=== PATIENT | female | born 1960 | race Caucasian/White ===

== ENCOUNTER 2024-11-23 07:00 | Outpatient (CLI) | payer OTHER, SELFPAY ==
--- NOTE | 2024-11-23 07:08 | XR_ITS ---
FINAL REPORT CLINICAL HISTORY: bilateral foot pain and swelling hx of torn tendon in the left COMPARISON: None FINDINGS: LEFT FOOT Three views demonstrate no acute fracture or dislocation. The joint spaces appear normal. No acute soft tissue abnormality is seen. IMPRESSION: No acute bony abnormality. Reviewed, Interpreted and Dictated by David Sanchez MD Transcribed by Susannah Melissa Authenticated and [facility]
--- NOTE | 2024-11-23 07:08 | XR_ITS ---
FINAL REPORT CLINICAL HISTORY: bilateral foot pain and swelling hx of torn tendon in the left COMPARISON: None FINDINGS: RIGHT FOOT Three views demonstrate no acute fracture or dislocation. The joint spaces appear normal. No acute soft tissue abnormality is seen. IMPRESSION: No acute bony abnormality. Reviewed, Interpreted and Dictated by David Sanchez MD Transcribed by Susannah Melissa Authenticated and [facility]
== END 2024-11-23 23:59 | disposition home or self-care (01) ==
PROVIDERS: PCP Family Medicine Geriatric Medicine; Visit Provider Podiatrist
DX: M79.671 Pain in right foot (principal); M79.672 Pain in left foot
CPT/HCPCS: 73630

== ENCOUNTER 2024-12-01 07:55 | Outpatient (CLI) | payer OTHER, SELFPAY ==
--- OUTSIDE RECORDS SUMMARY | 2017-06-22 02:53 | XMS_ITS | Continuity of Care Document ---
Author Organization [facility] Address [address] [place] [address] Phone Care Team Providers Care Pr Internship Name Role Phone Unavailable Unavailable Unavailable Allergies, Adverse Reactions, Alerts Substance Reaction Status Criticality No Known allergies Medications Medication Instructions Dosage Effective Dates (start - stop) Status Comments amoxicillin 875 mg-potassium clavulanate 125 mg tablet take 1 tablet by oral route every 12 hours 1.00 tablet - Active benzonatate 100 mg capsule take 1 capsule by oral route 3 times every day as needed for cough as needed for Chest Congestion And Cough 100 MG - Active codeine 10 mg-guaifenesin 100 mg/5 mL oral liquid take 5 milliliter by oral route every 4 hours as needed as needed for Chest Congestion And Cough 5 milliliter - Active DIOVAN (unknown strength) take 1 tablet by oral route 2 times every day Not Available - Active AMLODIPINE BESYLATE (unknown strength) take 1 tablet by oral route every day Not Available - Active Procedures Procedure Date Offic/outpt E&m [facility] 8 Service(s) provided in the office during regularly Services provided in an urgent care cent er Advance Directives Directive Yes / No Effective Date File Name No Information Encounters Encounter Description Practice Location Reason(s) For Visit Diagnoses Date Provider Providers Copied on Encounter [facility], [address], [place], [id number] , tel:[phone] [facility] No Information 8 No Information Offic/outpt E&m [facility], [address], [place], [id number] , tel: [phone] [facility] Blank sinus symptoms (chief complaint) Community acquired bacterial pneumoniaAcute non-recurrent pansinusitisAcute non-recurrent pansinusitis 6-201 8 No Information Family History Family Member Type Diagnosis Age At Onset Problem (finding) Family history of hyper tension Father Problem (finding) Family history of prost ate cancer Payers Payer name Insurance type Covered republican ID Authoriza tijob(s) Ales[facility] HMO PPO [place] [id number] Social History Type Description Quantity Date Captured Comments Sex Female Smoking Status No Information Chief Complaint And Reason For Visit No Information Reason For Referral Reason For Referral No Information History Of Present Illness Encounter Date Complaint History Of Prese nt Illness No Information Functional Status Date Functional Assessmen t No Information Instructions Date Instruction Additional Infor mation No Information Assessments Type Assessment Date No Information Patient Care Teams Name Effective Dates (start - stop) Status Members No Information
--- OUTSIDE RECORDS SUMMARY | 2024-11-07 11:10 | XMS_ITS | Encounter Summary ---
Author Organization [facility] ([place], [place], [place], [place]) Address [address] [place] [address] Care Team Providers Care Dance Historian Name Role Phone Eleonora Benson MD Primary Care Provider [phone] Reason for Referral * Mammography (Routine) - Closed Specialty Diagnoses / Procedures Referred By Burt elliott Referred To Contact Radiology Diagnoses Visit for screening mammogram Procedures MM digital mammo screen with jarad bilateral Gómez Kendall MD [address] [place], [place] [address] [address] Phone: tel: fax: [address] [address] Phone: tel: fax: Referral ID Status Reason Start Date Expiration Date Visits Re quested Visits Authorized [id number] Closed 10/31/2024 10/31/2025 1 1 Reason for Visit * Mammography (Routine) - Closed Specialty Diagnoses / Procedures Referred By Burt elliott Referred To Contact Radiology Diagnoses Visit for screening mammogram Procedures MM digital mammo screen with jarad bilateral Gómez Kendall MD [address] [place], [place] [address] [address] [place] [address] Phone: tel: fax: [address] [place] [address] Phone: tel: fax: Referral ID Status Reason Start Date Expiration Date Visits Re quested Visits Authorized [id number] Closed 10/31/2024 10/31/2025 1 1 Encounter Details Date Type Department Care Team (Latest Contact Info) Description 11/07/2024 11:10 AM EDT - 11/07/2024 11:59 PM EDT Hospital Encounter [facility] [address] [place] [address] Gómez Kendall MD [address] [facility] [address] [place] [address] Visit for screening mammogram Discharge Disposition: Home or Self Care Social History Tobacco Use Types Packs/Day Years Used Date Smoking Tobacco: Never Assessed Family and Community Support Answer Agustin e Recorded Help with Day to Day Activities Not on file 07/09/2023 Feeling Lonely or Isolated Not on file 07/08 Educational Attainment Answer Date Fabian rded Speak language other than Filipino at home Not on file 07/09/2023 Want help with school or training Not on file 07/09/2023 Substance Use Answer Date Recorded Used prescription meds for non-medical reasons N ot on file 07/09/2023 Used illegal drugs past 12 months Not on file 07/09/2023 Comments No Sex and Gender Information Value Date Recorded Sex Assigned at Not on file Legal Sex Female 4:38 PM CDT Gender Identity Not on file Sexual Orientation Not on file documented as of this encounter Last Filed Vital Signs Vital Sign Reading Time Taken Comments Blood Pressure - - Pulse - - Temperature - - Respiratory Rate - - Oxygen Saturation - - Inhaled Oxygen Concentration - - Weight 93.4 kg (206 lb) 11/07/2024 11:43 AM EDT Height 160 cm (5' 3 ) 11/07/2024 11:43 AM EDT Body Mass Index 36.49 11/07/2024 11:43 AM EDT documented in this encounter Plan of Treatment Upcoming Encounters Date Type Department Care Team (Late st Contact Info) Description 11/14/2025 7:30 AM EDT Appointment [address] [address] documented as of this encounter Procedures Procedure Name Priority Date/Time Associated Diagnosis Comments MM DIGITAL MAMMO SCREEN WITH JARAD BILATERAL Routine 11/07/2024 11:44 AM EDT Visit for screening mammogram documented in this encounter Results * MM digital mammo screen with jarad bilateral (11/07/2024 11:44 AM EDT) Anatomical Region Laterality Modality Breast Bilateral Mammography 11/07/2024 8:21 PM EDT Impressions 11/07/2024 8:24 PM EDT No mammographic evidence of malignancy. BI-RADS CATEGORY: 2 , BENIGN FINDING(S). RECOMMENDED FOLLOW-UP: Routine annual screening mammography. A letter including results and recommendations was sent to the patient. Density notification was provided as well. Patient information entered into a reminder system with a target due date for the next mammogram. At our facility, a quechan marker is positioned over a visible skin lesion and a linear marker is used to indicate a scar. A triangular marker is placed on a self reported palpable finding. Mammography does not detect approximately 10-15% of breast cancers. An annual clinical breast exam by the patient's breast care physician and regular monthly self breast exams by the patient are integral parts of breast cancer screening. A normal mammogram does not completely exclude the presence of breast cancer, especially if there is an abnormal finding on physical exam. When clinically indicated, a biopsy should not be deferred because of a normal mammogram report. : 1960 Images reviewed, interpreted, and dictated by Nay Adair MD Narrative 11/07/2024 8:24 PM EDT BILATERAL SCREENING DIGITAL MAMMOGRAPHY CLINICAL INDICATION: Routine screening FAMILY HISTORY: No family history. . TECHNIQUE: Bilateral CC and MLO views were obtained with 2-D and 3-D digital acquisitions. The study was read with the assistance of CAD. COMPARISON: Previous exams back to 2020. FINDINGS: No spiculated mass, calcifications or architectural distortion is seen. There are scattered areas of fibroglandular density. No suspicious change identified. Gómez Kendall MD IMG MAMMOGRAPHY ORDERABLES F inal Result documented in this encounter Visit Diagnoses Diagnosis Visit for screening mammogram documented in this encounter Care Teams Dance Historian Relationship Specialty Start Date End Date Eleonora Benson MD [address] [place] [address] [place] [address] PCP - General Family Medicine 11/07/24 documented as of this encounter
--- OUTSIDE RECORDS SUMMARY | 2024-12-01 07:58 | XMS_ITS | Encounter Summary ---
Author Organization Healthcare Address [address] [place] [address] Care Team Providers Care Supervisor Ornamental Ironworking Name Role Phone Micki Austin MD Primary Care Provider [phone] Encounter Details Date Type Department Care Team ([facility] st Contact Info) Description 09/06/2019 Orders Only External Location [address] [place] [address] Micki Austin MD [address] [place], [place] [id number] Social History Tobacco Use Types Packs/Day Years Used Date Smoking Tobacco: Never Assessed Comments Unknown Sex and Gender Information Value Date Recorded Sex Assigned at Not on file Legal Sex Female 7:54 PM EDT Gender Identity Not on file Sexual Orientation Not on file documented as of this encounter Plan of Treatment Not on file documented as of this encounter Procedures Procedure Name Priority Date/Time Associated Diagnosis Comments CT MSK OUTSIDE IMAGES 09/06/2019 11:29 AM EDT documented in this encounter Results * CT MSK OUTSIDE IMAGES (09/06/2019 11:29 AM EDT) Anatomical Region Laterality Modality Computed Tomogra phy 09/06/2019 11:2 9 AM EDT us Micki Austin MD IMG CT PROCEDURES Final Resul t documented in this encounter Visit Diagnoses Not on filedocumented in this encounter Care Teams Supervisor Ornamental Ironworking Relationship Specialty Start Date End Date Micki Austin MD [address] [place], [place] [address] PCP - General 06/28/20 documented as of this encounter
--- OUTSIDE RECORDS SUMMARY | 2024-12-01 07:58 | XMS_ITS | Clinical Summary ---
Author Organization [facility] ([place], [place], [place], [place]) Address [address] [place] [address] Care Team Providers Care Range Mounter Name Role Phone Eleonora Benson MD Primary Care Provider [phone] Encounters Date Type Department Care Team Description 11/07/2024 11:10 AM EDT - 11/07/2024 11:59 PM EDT Hospital Encounter [facility] [address] [facility] [address] [place] [address] Gómez Kendall MD Visit for screening mammogram Discharge Disposition: Home or Self Care 11/07/2024 Outside Orders [facility] [address] [facility] [address] [place] [address] Eleonora Benson MD Visit for screening mammogram (Primary Dx) 11/07/2024 Travel from Last 3 Months Family History Medical History Relation Name Comments Prostate cancer Father Breast cancer Neg Hx Ovarian cancer Neg Hx Relation Name Status Comments Father Social History Tobacco Use Types Packs/Day Years Used Date Smoking Tobacco: Never Assessed Family and Community Support Answer Agustin e Recorded Help with Day to Day Activities Not on file 07/09/2023 Feeling Lonely or Isolated Not on file 07/08 Educational Attainment Answer Date Fabian rded Speak language other than Citizen [place] at home Not on file 07/09/2023 Want [...] on file Sexual Orientation Not on file Last Filed Vital Signs Vital Sign Reading Time Taken Comments Blood Pressure - - Pulse - - Temperature - - Respiratory Rate - - Oxygen Saturation - - Inhaled Oxygen Concentration - - Weight 93.4 kg (206 lb) 11/07/2024 11:43 AM EDT Height 160 cm (5' 3 ) 11/07/2024 11:43 AM EDT Body Mass Index 36.49 11/07/2024 11:43 AM EDT Plan of Treatment Upcoming Encounters Date Type Department Care Team (Late st Contact Info) Description 11/14/2025 7:30 AM EDT Appointment [address] [address] Health Maintenance Due Date Last Done Comments CT Colonography 1960 Colonoscopy 1960 Colorectal Cancer Screening 1960 FOBT/FIT 1960 Fit-DNA (Cologuard) 1960 Sigmoidoscopy 1960 Depression Screening (12+) 1972 Tobacco Cessation Counseling and Screening (12+) 1972 HIV Screening 10/17/1975 Hepatitis C Screening 1978 DTAP/TDAP/TD VACCINES (1 - Tdap) 10/17/1979 Pap Smear 1981 Lipid Panel 2005 Pneumococcal 50+ years (2 of 2 - PCV) 12/22/201808/2017 Shingles Vaccine (Zoster) (2 of 2) 11/18/20222022 COVID-19 VACCINE (4 - season) 2024 01/02/2022, 12/05/2020, 04/26/2020 Influenza Vaccine (#1) 2024 Breast Cancer Screening 11/07/2026 11/07/2024, 10/28 Respiratory Syncytial Virus (RSV) Adult or (1 - 1-dose 75+ series) 10/17/2035 Procedures Procedure Name Priority Date/Time Associated Diagnosis Comments MM DIGITAL MAMMO SCREEN WITH JARAD BILATERAL Routine 11/07/2024 11:44 AM EDT Visit for screening mammogram from Last 3 Months Results * MM digital mammo screen with [...] the next mammogram. At our facility, a [place] marker is positioned over a visible skin [...] 1960 Images reviewed, interpreted, and dictated by MD Delma Cordero 11/07/2024 8:24 PM EDT BILATERAL SCREENING DIGITAL [...] of fibroglandular density. No suspicious change identified. us Gómez Kendall MD IMG MAMMOGRAPHY ORDERABLES F inal Result from Last 3 [place] [address] [facility] Care Teams Range Mounter Relationship Specialty Start Date End Date Eleonora Benson MD [address] [address] PCP - General Family Medicine 11/07/24
--- OUTSIDE RECORDS SUMMARY | 2024-12-01 07:58 | XMS_ITS | Encounter Summary ---
Author Organization [facility] ([place], [place], [place], [place]) Address [address] [place] [address] Care Team Providers Care Electrical Instrument Technician Name Role Phone Gómez Kendall MD Primary Care Provider [phone] Reason for Referral * Mammography (Routine) - Closed Specialty Diagnoses / Procedures Referred By Contac t Referred To Contact Radiology Diagnoses Visit for screening mammogram Procedures MM digital mammo screen with tan bilateral Gómez Kendall MD [address] [address] Phone: tel: fax: [address] [place] [address] Phone: tel: fax: Referral ID Status Reason Start Date Expiration Date Visits Re quested Visits Authorized [id number] Closed 10/31/2024 10/31/2025 1 1 Encounter Details Date Type Department Care Team (Late st Contact Info) Description 10/29/2023 Outside Orders [address] [place] [address] Gómez Kendall MD [address] [employer] [place] [address] Visit for screening mammogram (Primary Dx) Social History Tobacco Use Types Packs/Day Years Used Date Smoking Tobacco: Never Assessed Family and Community Support Answer Agustin e Recorded Help with Day to Day Activities Not on file 07/09/2023 Feeling Lonely or Isolated Not on file 07/08 Educational Attainment Answer Date Fabian rded Speak language other than Croatian at home Not on file 07/09/2023 Want help with school or training Not on file 07/09/2023 Substance Use Answer Date Recorded Used prescription meds for non-medical reasons N ot on file 07/09/2023 Used illegal drugs past 12 months Not on file 07/09/2023 Comments Unknown Sex and Gender Information Value Date Recorded Sex Assigned at Not on file Legal Sex Female 4:38 PM CDT Gender Identity Not on file Sexual Orientation Not on file documented as of this encounter Plan of Treatment Upcoming Encounters Date Type Department Care Team (Late st Contact Info) Description 11/14/2025 7:30 AM EDT Appointment [address] [address] documented as of this encounter Results * MM digital mammo screen with tan bilateral (11/07/2024 11:44 AM EDT) Anatomical Region [...] the next mammogram. At our facility, a [place] marker is positioned over a visible skin [...] interpreted, and dictated by Nay Adair MD [facility] 11/07/2024 8:24 PM EDT BILATERAL SCREENING DIGITAL [...] encounter Visit Diagnoses Diagnosis Visit for screening mammogram- Primary Visit for screening mammogram documented in this encounter Care Teams Electrical Instrument Technician Relationship Specialty Start Date End Date Gómez Kendall MD PCP - General Family Medicine 10/29/23 11/06/24 documented as of this encounter
--- OUTSIDE RECORDS SUMMARY | 2024-12-01 07:58 | XMS_ITS | Encounter Summary ---
Author Organization [facility] ([place], [place], [place], [place]) Address [address] [place] [address] Care Team Providers Care Human Relations Professor Name Role Phone Eleonora Benson MD Primary Care Provider [phone] Reason for Referral * Mammography (Routine) - Authorized Specialty Diagnoses / Procedures Referred By Contac t Referred To Contact Radiology Diagnoses Visit for screening mammogram Procedures MM digital mammo screen with tan bilateral Eleonora Benson MD [address] [place] [address] Phone: tel: fax: [address] [place] [phone] Phone: tel: fax: Referral ID Status Reason Start Date Expiration Date V isits Requested Visits Authorized [id number] Authorized 11/14/2025 11/14/2026 1 1 Encounter Details Date Type Department Care Team (Late st Contact Info) Description 11/07/2024 Outside Orders [facility] Breast [address] [place] [address] Eleonora Benson MD [address] [place] [address] Visit for screening mammogram (Primary Dx) Social History Tobacco Use Types Packs/Day Years Used Date Smoking Tobacco: Never Assessed Family and Community Support Answer Agustin e Recorded Help with Day to Day Activities Not on file 07/09/2023 Feeling Lonely or Isolated Not on file 07/08 Educational Attainment Answer Date Fabian rded Speak language other than Colombian at home Not on file 07/09/2023 Want [...] Info) Description 11/14/2025 7:30 AM EDT Appointment [address] [place] [address] Scheduled Orders Name Type Priority Associated Diagnoses Orde r Schedule MM digital mammo screen with tan bilateral Imaging Routine Visit for screening mammogram Expected: 11/14/2025, Expires: 11/14/2026 documented as of this encounter Visit Diagnoses Diagnosis Visit for screening mammogram- Primary documented in this encounter Care Teams Human Relations Professor Relationship Specialty Start Date End Date Eleonora Benson MD [address] [address] PCP - General Family Medicine 11/07/24 documented as of this encounter
--- OUTSIDE RECORDS SUMMARY | 2024-12-01 07:58 | XMS_ITS | Clinical Summary ---
Author Organization [facility] Address [address] [place] [address] Care Team Providers Care Mechanical Test Technician Name Role Phone Micki Austin MD Primary Care Provider [phone] Allergies No known active allergies Medications valsartan-hydroC HLOROthiazide (Diovan-HCT) 320-25 MG tablet Take 1 tablet by mouth 1 (one) time each day. 09/06/2020 Active amLODIPine (Norvasc) 5 MG tablet Take by mouth 1 (one) time each day. Active meloxicam (Mobic) 15 MG tablet Take 15 mg by mouth 1 (one) time each day. Active Active Problems No known active problems Family History Medical History Relation Name Comments Prostate cancer Father Diabetes Maternal Grandfather Diabetes Mother Relation Name Status Comments Father Maternal Grandfather Mother Social History Tobacco Use Types Packs/Day Years Used Date Smoking Tobacco: Never Smokeless Tobacco: Never Tobacco Cessation:Counseling Given: No Alcohol Use Standard Drinks/Week Comments Never 0 (1 standard drink = 0.6 oz pur e alcohol) PHQ-2 Answer Date Recorded Patient Health Questionnaire-2 Score 0 09/25/2020 Comments Unknown Sex and Gender Information Value Date Recorded Sex Assigned at Not on file Legal Sex Female 7:54 PM EDT Gender Identity Not on file Sexual Orientation Not on file Last Filed Vital Signs Vital Sign Reading Time Taken Comments Blood Pressure 152/79 09/25/2020 3:11 PM EDT Pulse 92 09/25/2020 3:11 PM EDT Temperature 36.1 C (96.9 F) 09/25/2020 3:11 PM EDT Respiratory Rate - - Oxygen Saturation - - Inhaled Oxygen Concentration - - Weight 112 kg (247 lb 5.7 oz) 09/25/2020 3:11 PM EDT Height 162.6 cm (5' 4 ) 09/25/2020 3:11 PM EDT Body Mass Index 42.46 09/25/2020 3:11 PM EDT Plan of Treatment Health Maintenance Due Date Last Done Comments [facility]-Depression Screening 1960 [facility]-Infant/Child/Adol SDOH Screenings 1960 [facility]- SDOH Screenings 1978 [facility]-Adult SDOH Screenings 1978 [facility]-DTaP,Tdap,and Td Vaccines (1 - Tdap) 10/17/1979 [facility]-Pap Smear 1981 [facility]-Cervical Cancer Screening 1990 [facility]-HPV/Cotest 1990 CT Colonography 2005 Colonoscopy 2005 FIT-DNA 2005 FIT 2005 FOBT 2005 Sigmoidoscopy 2005 [facility]-Colorectal Cancer Screening 2005 [facility]-Zoster Vaccines (1 of 2) 2010 [facility]-Pneumococcal Vaccine: 50+ Years (2 of 2 - PCV) 12/22/2018 12/22/2017 [id number] Vaccine (2 - 2024- season) 2024 04/26/2020 [facility]-Influenza Vaccine (#1) 10/16/202411/07, 11/29/2018, 12/22/2017, Additional history exists [facility]-RSV Vaccine: 60+ Years or (1 - 1-dose 75+ series) 10/17/2035 [facility]-Diabetes: Hemoglobin A1C Discontinued 09/25/2020 HPV Vaccines Aged Out No longer eligi ble based on patient's age to complete this topic [facility]-HIB Vaccines Aged Out No longer e ligible based on patient's age to complete this topic [facility]-Hepatitis A Vaccines Aged Out No longer eligible based on patient's age to complete this topic [facility]-IPV Vaccines Aged Out No longer e ligible based on patient's age to complete this topic [facility]-Rotavirus Vaccines Aged Out No lo nger eligible based on patient's age to complete this topic Procedures Procedure Name Priority Date/Time Associated Diagnosis Comments POCT GLYCOSYLATED HEMOGLOBIN (HGB A1C) Routine 09/25/2020 3:39 PM EDT H/O: nutritional disorder from Last 3 Months or Most Recently Relevant to Health Maintenance Results * POCT Glycosylated Hemoglobin (Hgb A1C) (09/25/2020 3:39 PM EDT) POCT Hemoglobin A1C 5.8 4.4 - 6.6 % [facility] Kit Lot Number [id number] [facility] Kit Expiration Date 06/2022 [facility] Blood Venous blood specimen / Unknown 09/25/2020 3:39 PM EDT Harish Ryan MD POINT OF CARE TEST ENTER/EDIT OR DERABLES Final Result [facility] [address] [place] [address] from Last 3 Months or Most Recently Relevant to Health Maintenance Insurance [employer] Care Teams Mechanical Test Technician Relationship Specialty Start Date End Date Micki Austin MD [address] [place] [address] PCP - General 06/28/20
--- OUTSIDE RECORDS SUMMARY | 2024-12-01 07:58 | XMS_ITS | Encounter Summary ---
Author Organization [employer] ([place], [place], [place], [place]) Address [address] [place] [address] Care Team Providers Care Teachers' Aide Name Role Phone Gómez Kendall MD Primary Care Provider Eleonora Benson MD Primary Care Provider Encounter Details Date Type Department Care Team (Late st Contact Info) Description 06/23/2022 Outside Orders [facility] Outpatient Physical Therapy [address] [facility] [address] [place] [address] Thony Lewis MD [address] [place] [address] Lymphedema (Primary Dx) Social History Tobacco Use Types [...] Info) Description 11/14/2025 7:30 AM EDT Appointment [facility] Breast Care [address] [facility] [address] [place] [address] documented as of this encounter Visit Diagnoses Diagnosis Lymphedema- Primary Other noninfectious lymphedema documented in this encounter Care Teams Teachers' Aide Relationship Specialty Start Date End Date Gómez Kendall MD PCP - General Family Medicine 10/29/23 11/06/24 Eleonora Benson MD [address] [place] [address] [place] [phone] PCP - General Family Medicine 11/07/24 documented as of this encounter
--- OUTSIDE RECORDS SUMMARY | 2024-12-01 07:58 | XMS_ITS | Referral Summary ---
Author Organization [employer] ([place], [place], [place], [place]) Address [address] [place] [address] Care Team Providers Care Event Specialist Name Role Phone Eleonora Benson MD Primary Care Provider [phone] Encounters Date Type Department Care Team Description 11/07/2024 Outside Orders [facility] Breast Care [address] [address] Eleonora Benson MD Visit for screening mammogram (Primary Dx) 11/07/2024 Travel 11/07/2024 11:10 AM EDT - 11/07/2024 11:59 PM EDT Hospital Encounter [facility] Breast [address] [address] Gómez Kendall MD Visit for screening mammogram Discharge Disposition: Home or Self Care from Last 3 Months Social History Tobacco Use Types Packs/Day Years Used Date Smoking Tobacco: Never Assessed Family and Community Support Answer Agustin e Recorded Help with Day to Day Activities Not on file 07/09/2023 Feeling Lonely or Isolated Not on file 07/08 Educational Attainment Answer Date Fabian rded Speak language other than Senegalese at home Not on file 07/09/2023 Want [...] Info) Description 11/14/2025 7:30 AM EDT Appointment [address] [phone] Procedures Procedure Name Priority Date/Time Associated Diagnosis [...] the next mammogram. At our facility, a [place] marker is positioned over a visible skin [...] inal Result from Last 3 Months Insurance [employer] Care Teams Event Specialist Relationship Specialty Start Date End Date Eleonora Benson MD [address] [place] [address] [place] [phone] PCP - General Family Medicine 11/07/24
--- OUTSIDE RECORDS SUMMARY | 2024-12-01 07:58 | XMS_ITS | Clinical Summary ---
Author Organization [facility] Address [address] [place] [address] Care Team Providers Care Coding Validator Name Role Phone Gómez Kendall MD Primary Care Provider [phone] Allergies No known active allergies Medications valsartan 80 MG tablet 320 mg, hydroCHLOROthiazide 25 MG tablet 25 mg Take 1 dose by mouth Daily. Active atorvastatin (LIPITOR) 40 MG tablet Take 1 tablet by mouth Daily. Active metFORMIN (GLUCOPHAGE) 500 MG tablet Take 1 tablet by mouth Daily With Dinner. Active potassium chloride (MICRO-K) 10 MEQ CR capsule Take 2 capsules by mouth Daily. 10 capsule 09/24/19 24 Active furosemide (LASIX) 40 MG tablet Take 0.5 tablets by mouth Daily. 15 tablet 09/24/19 24 Active Active Problems No known active problems Family History Medical History Relation Name Comments Breast cancer Neg Hx Ovarian cancer Neg Hx Social History Tobacco Use Types Packs/Day Years Used Date Smoking Tobacco: Former Cigarettes Q uit: 1989 Alcohol Use Standard Drinks/Week Comments Never 0 (1 standard drink = 0.6 oz pur e alcohol) AUDIT-C Answer Date Recorded Q1: How often do you have a drink containing alcohol? Never 09/24/2023 Q2: How many drinks containi ng alcohol do you have on a typical day when you are drinking? Patient does not drink Q3: How often do you have si x or more drinks on one occasion? Never 09/24/2023 Abuse Screen Answer Date Recorded Feels Unsafe at Home or Work/School no 09/23/2023 Feels Threatened by Someone no 080 09/2023 Does Anyone Try to Keep You From Having Contact with Others or Doing Things Outside Your Home? no 09/23/2023 Physical Signs of Abuse Present no 09/23/2023 Housing Stability Answer Date Recorded Current Living Arrangements home 10/2023 Potentially Unsafe Housing Conditions Not on zay e 09/24/2023 Family and Community Support Answer Agustin e Recorded Help with Day-to-Day Activities Not on file 11/23/2022 Lonely or Isolated Not on file 11/23/2022 Employment Answer Date Recorded Do you want help finding or keeping work or a jose ramon b? Not on file 11/23/2022 Disabilities Answer Date Recorded Difficulty Concentrating, Remembering or Making Decisions no 09/24/2023 Difficulty Managing Errands Independently yes 09/24/2023 Education Answer Date Recorded Help with school or training? Not on file Preferred Language Not on file 11/23/2022 Comments No Sex and Gender Information Value Date Recorded Sex Assigned at Not on file Legal Sex Female 1:30 PM EDT Gender Identity Not on file Sexual Orientation Not on file Last Filed Vital Signs Vital Sign Reading Time Taken Comments Blood Pressure 179/73 09/24/2023 12:48 PM EDT Pulse 100 09/24/2023 12:48 PM EDT Temperature 36.7 C (98.1 F) 09/24/2023 12:48 PM EDT Respiratory Rate 17 09/24/2023 12:48 PM EDT Oxygen Saturation 98% 09/24/2023 12:48 PM EDT Inhaled Oxygen Concentration - - Weight 129 kg (284 lb 6.3 oz) 09/24/2023 12:03 P M EDT Height 160 cm (5' 2.99 ) 09/24/2023 12:03 PM EDT Body Mass Index 50.39 09/24/2023 12:03 PM EDT Plan of Treatment Health Maintenance Due Date Last Done Comments Annual Gynecologic Pelvic an d Breast Exam 1960 COLOGUARD 2005 COLON CANCER SCREENING 5 YEA R SIGMOID[address]COPY 2005 [address] COLONOGRAPHY 2005 FECAL OCCULT BLOOD TEST 2005 FIT Testing (1 year) 2005 Pneumococcal Vaccine 50+ (2 of 2 - PCV) 12/22/2018 12/22/2017 ANNUAL PHYSICAL 05/25/2022 HEPATITIS C SCREENING 05/25/2022 ZOSTER VACCINE (2 of 2) 11/18/2022 09/23/2022 MAMMOGRAM 02/06/2024 02/05/2022, 05/0 07/2020, 08/09/2017, Additional history exists INFLUENZA VACCINE 09/15/2024 01/02/2022, , 01/02/2022, Additional history exists TDAP/TD VACCINES (2 - Td or Tdap) 12/04/2024 015 COLONOSCOPY 05/21/2025 05/22/2015, 04/19/2012 COLORECTAL CANCER SCREENING 05/21/2025 Procedures Procedure Name Priority Date/Time Associated Diagnosis Comments MAMMO SCREENING DIGITAL TOMOSYNTHESIS BILATERAL W CAD Routine 02/05/2022 9:01 AM EST Visit for screening mammogram from Last 3 Months or Most Recently Relevant to Health Maintenance Results * Mammo Screening Digital Tomosynthesis Bilateral With CAD (02/05/2022 9:01 AM EST) Anatomical Region Laterality Modality Breast N/A Mammography 02/12/2022 12:5 7 PM EST Impressions 02/12/2022 12:57 PM EST Negative bilateral mammogram. RECOMMENDATION: Continue annual screening mammography. BI-RADS CATEGORY 1, NEGATIVE. CAD was utilized. The standard false-negative rate of mammography is between 10% and 25%. Complex patterns or increased breast density will markedly elevate the false-negative rate of mammography. A letter, in lay terminology, with the results of this exam will be mailed to the patient. This report was finalized on 02/12/2022 12:[address] Tia Mcclelland MD. Narrative 02/12/2022 12:57 PM EST DIGITAL SCREENING MAMMOGRAM WITH TOMOSYNTHESIS HISTORY: Screening Mammography. Low dose full field digital breast tomosynthesis imaging was performed with 2D and 3D acquisitions consisting of bilateral CC and MLO views. Examination is compared to prior examination dating back to 06/04/2015. Examination is read in conjunction with computer aided detection. FINDINGS: There are scattered areas of fibroglandular density. No suspicious masses, microcalcifications or areas of architectural distortion are present. us Gómez Kendall MD IMG MAMMOGRAPHY ORDERABLES F inal Result from Last 3 Months or Most Recently Relevant to Health Maintenance Advance Directives * CPR (Attempt to Resuscitate) (Latest Code Status on File) Date Activated Date Inactivated Comments 09/24/2023 1:42 AM 09/24/2023 5:08 PM Question Answer Comments Code Status (Patient has no pulse and is not breathing): CPR (Attempt to Resuscitate) Medical Interventions (Patie nt has pulse or is breathing): Full Support Level Of Support Discussed With: Patient Care Teams Coding Validator Relationship Specialty Start Date End Date Gómez Kendall MD [address] [place] [address] PCP - General Instructional Technology Coach 10/06/23
--- OUTSIDE RECORDS SUMMARY | 2024-12-01 07:59 | XMS_ITS | Encounter Summary ---
Author Organization [employer] ([place], [place], [place], [place]) Address [address] [place] [address] Care Team Providers Care Accounts Payable Accountant Name Role Phone Eleonora Benson MD Primary Care Provider [phone] Encounter Details Date Type Department Care Team (Latest Contact Info) Description 11/07/2024 Travel Social History Tobacco Use Types Packs/Day Years Used Date Smoking Tobacco: Never Assessed Family and Community Support Answer Agustin e Recorded Help with Day to Day Activities Not on file 07/09/2023 Feeling Lonely or Isolated Not on file 07/08 Educational Attainment Answer Date Fabian rded Speak language other than [place] at home Not on file 07/09/2023 Want [...] Info) Description 11/14/2025 7:30 AM EDT Appointment [address] [phone] documented as of this encounter Visit Diagnoses Not on filedocumented in this encounter Care Teams Accounts Payable Accountant Relationship Specialty Start Date End Date Eleonora Benson MD [address] [place] [phone] PCP - General Family Medicine 11/07/24 documented as of this encounter
--- NOTE | 2024-12-01 08:00 | US_ITS ---
FINAL REPORT CLINICAL HISTORY: COLD EXTREMITIES,HTN,RT FOOT PAIN,EX SMOKER FINDINGS: ANKLE-BRACHIAL PRESSURE INDICES Pressure indices are as follows: RIGHT LOWER EXTREMITY: Ankle-brachial pressure index: 1.19 Comments: Normal LEFT LOWER EXTREMITY: Ankle-brachial pressure index: 1.31 Comments: Normal IMPRESSION: No evidence of significant obstructive peripheral vascular disease of the lower extremities Reviewed, Interpreted and Dictated by Seema Briones MD Transcribed by Kim Iverson Authenticated and [facility]
== END 2024-12-01 23:59 | disposition home or self-care (01) ==
LOC: RT 07:57
PROVIDERS: PCP Family Medicine Geriatric Medicine; Visit Provider Podiatrist
DX: R09.89 Other specified symptoms and signs involving the circulatory and respiratory systems (principal)
CPT/HCPCS: 93923

== ENCOUNTER 2024-12-21 13:58 | Outpatient (RCR) | payer OTHER, SELFPAY ==
--- NOTE | 2024-12-21 16:15 | HMH.PTOPEV ---
PT Evaluation Rehab PT Outpatient Evaluation Start: 12/21/24 14:02 Freq: Status: Active Protocol: Document 12/21/24 14:02 TAWNYA (Rec: 12/21/24 16:15 [id number] [id number]) E-signed By Anuja Mir, PT Outpatient Therapy Subjective History Subjective History Pt is a 64 y/o female referred to PT for posterior tibial tendinitis. Pt reports chronic R foot pain since 2018, states she has had PT for the same condition several times with last bout in 2019 with improvement. Pt states she has lost a significant amount of weight recently therefore has been more active which she states may have flared up symptoms. Pt had a R foot radiograph on 11/23/24 with impression of No acute bony abnormality. Pt reports current symptoms of localized pain of the insertion of the posterior tibial tendon and swelling that worsens with weightbearing activities especially standing, walking, stair climbing and walking on uneven ground. Pt reports her ankle feels unstable so she is cautious with a lot of activities to prevent twisting it or falling. Pt denies recent falls. Pt reports she ordered over the counter orthotics which she states helps to support her arch. Medical History: Hypertension New diagnosis of No cancer in past 12 months? Chief Complaint Pain,Swelling Symptom Type Sharp Symptoms Relieved By Rest/Positioning,OTC Meds Symptoms Aggravated Standing,Physical Activity,Walking By Current Functional Housework,Standing,Squatting,Recreation Activity, Limitations Walking,Stairs,Balance Symptom Description Intermittent Level of pain today 4 (0-10) Pain scale - at its 0 best (0-10) Pain scale - at its 6 worst (0-10) Ankle/Foot Eval Gait Observation General Gait Pattern No Deviations/Normal Observation Assistive Device Ambulation Assistive None Device Palpation Tenderness right Ankle/Foot Palpation Tenderness Findings Ankle/Foot Palpation 2/4 posterior tib orign/insertion, medial malleoli Overall Comment ROM Ankle/Foot 12 Dorsiflexion W/Knee Flexed Passive Range Motion (degrees) Ankle/Foot Plantar 38 Flexion Active Range of Motion (degrees) Ankle/Foot Eversion 15 Active Range of Motion (degrees) Ankle/Foot Inversion 12 Active Range of Motion (degrees) MMT Ankle Dorsiflexion 4 Good Strength Grade Ankle Plantarflexion 4 Good Strength Grade Foot Eversion 4- Good- Strength Grade Foot Inversion 3+ Fair+ Strength Grade Lower Extremity Functional Index Activities Today, do you or would you have any difficulty at all with: a.Any of your usual No difficulty work, housework or school activities b. Your usual No difficulty hobbies, recreational or sporting activities c. Getting into or No difficulty out of the bath d. Walking between No difficulty rooms e. Putting on your No difficulty shoes or socks f. Squatting No difficulty g. Lifting an object No difficulty , like a bag of groceries from the floor h. Performing light No difficulty activities around your home i. Performing heavy No difficulty activities around your home j. Getting into or No difficulty out of a car k. Walking 2 blocks No difficulty l. Walking a mile No difficulty m. Going up or down No difficulty 10 stairs (about 1 flight of stairs) n. Standing for 1 No difficulty hour o. Sitting for 1 No difficulty hour p. Running on even Moderate difficulty ground q. Running on uneven Moderate difficulty ground r. Making sharp Moderate difficulty turns while running fast s. Hopping Moderate difficulty t. Rolling over in No difficulty bed LEFI Score Lower Extremity 72 Functional Index Score Miscellaneous Dx PT Eval Objective Objective Observation: pes planus Edema: malleoli circumference 39, figure 8 59cm Balance: FT EO stable 30 without LOB, FT EC unstable < 30 with self-corrected LOB, tandem stance firm surface <30 with self corrected LOB Outpatient Therapy Assessment Impairments Problems/ Palpation Tenderness,Impaired Range of Motion,Impaired Impairmments Strength,Impaired Gait Pattern,Impaired Walking, Impaired Standing,Impaired Household Care,Impaired Stair Climbing,Impaired Incline Stepping,Impaired Stepping on Uneven Surface,Impaired Squatting,Impaired Recreational Activities,Impaired Balance,Increased Edema,Subjective C/O Pain,Impaired Self Care/Self Management Prognosis Rehab Potential Good Clinical Impression Consistent with Yes Diagnosis PT Patient Goals PT Patient Goals PT Short Term 3 weeks: Patient Goals 1. Verbalize compliance with HEP to assist with progress. 2. Improve R ankle inversion MMT to 4-/5 grossly to assist with function. 3. Perform FT EC unstable surface 30 without LOB to improve ankle stability. PT Mcc Patient 6 weeks: Goals 1. Improve pain at worst to 2-4/10 on VAS to improve overall QOL/function. 2. Improve R ankle AROM to WNL to assist with gait and mobility. 3. Improve R ankle MMT to 4-4+/5 grossly to assist with function. 4. Perform tandem stance firm surface 30 without LOB to improve ankle stability. 5. [place] 1 flight of stairs reciprocally with pain 2 /10 or less to assist with home navigation. Outpatient Therapy Plan of Care Treatment Plan May Include Therapeutic Exercise Yes Including Home Exercise Program Manual Therapy Yes Techniques Neuromuscular Re- Yes education Therapeutic Yes Activities to Return to Previous Functional/Work Level Gait Training Yes ADL/Self Care Yes Education Dry Needling Yes Thermal Modalities Yes Electrical Yes Stimulation Ultrasound/ Yes Phonophoresis Iontophoresis Yes Orthotics/Bracing/ Yes Splinting Vasopneumatic Yes Compression Pump Massage Yes Group Therapy for Yes Medicare Eval/Re-Eval Yes Frequency Times per week 2 Duration Number of Weeks 4-6 Addendums This patient is a No candidate for social or vocational rehab ? Patient/Guardian Yes verbally acknowledges understanding of treatment program and consents to further treatment? Patient/Guardian Yes verbally acknowledges understanding of diagnosis, prognosis and goals for treatment? Eval Complexity PT Charges 47403 - Low Complexity Shoulder/Elbow Eval Shoulder Objective Measurements Elbow Objective Measurements PHYSICIAN CERTIFICATION: I certify the specified therapy services for Nay Becker are required, authorized, and reviewed every 30 days.
== END 2024-12-21 23:59 | disposition home or self-care (01) ==
LOC: PT 13:58
PROVIDERS: PCP Family Medicine Geriatric Medicine; Visit Provider Podiatrist
DX: M76.829 Posterior tibial tendinitis, unspecified leg (principal)
CPT/HCPCS: 97161